=== PATIENT | female | born 1945 | race Caucasian/White ===

== ENCOUNTER 2019-03-05 01:03 | Inpatient (IN) ==
[~2019-03-05 01:03] MED LIST: SODIUM CHLORIDE 0.9% 1,000 ML IV STA
[2019-03-05 01:55] LABS: Alanine Aminotransferase 34 U/L (13-56); Albumin 2.3 G/DL (3.4-5.0); Alkaline Phosphatase 78 U/L (45-117); Aspartate Amino Transferase 24 U/L (0-37); Bilirubin,Total < 0.39 MG/DL (0.2-1.0); Blood Urea Nitrogen 18 MG/DL (7-18); Calcium 7.3 MG/DL (8.5-10.1); Glucose 205 MG/DL (74-106); Total Protein 4.9 G/DL (6.4-8.3)
[2019-03-05 02:06] LABS: PT Patient Result 10.4 SECS
[2019-03-05 02:40] LABS: Basophils # 0.1 10*3/uL (0.0-0.2); Basophils % 0.2 % (0.0-0.8); Eosinophils # 0.2 10*3/uL (0.0-0.87); Hematocrit 18.6 VOL% (35.7-47.0); Immature Granulocytes % 6.5 %; Lymphocytes # 2.9 10*3/uL (1.4-4.0); Lymphocytes % 12.5 % (21.3-54.2); Mean Corpuscular HGB Conc 31.2 GM/DL (32-36); Mean Corpuscular Volume 96.9 FL (87-102); Mean Platelet Volume 9.3 FL (9.6-12.0); Monocytes % 6.8 % (1.7-12.7); Platelet Count 232 T/CUMM (130-400); Red Blood Count 1.92 MC/CUMM (3.8-5.5); Red Cell Distribution Width 13.3 % (9.3-17.3); White Blood Count 22.9 T/CUMM (4-12)
[2019-03-05 02:43] LABS: Hemoglobin 5.8 GM/DL (12.0-16.0)
[2019-03-05 04:03] LABS: Band Neutrophils 2 % (0-10); Eosinophils 2 % (0-10); Lymphocytes 9 % (20-55); Metamyelocytes 2 %; Platelet Estimate Normal; Segmented Neutrophils 79 % (50-85); Total Cells Counted 100
[2019-03-05] MEDS ORDERED: PIPERACILLIN/TAZOBACTAM 3,375 MG in SODIUM CHLORIDE 0.9% 100 ML IV STA (05:51)
[2019-03-05] MEDS ORDERED: MORPHINE 4 MG/1 ML VIAL IV PRN (06:30)
[2019-03-05] MEDS ORDERED: SODIUM CHLORIDE 0.9% 1,000 ML IV SCH (06:30)
[2019-03-05] MEDS ORDERED: NICOTINE 21 MG/24 HR PATCH TRANSDERM PRN (06:30)
[2019-03-05] MEDS: ONDANSETRON 4 MG/2 ML VIAL IV PRN ×2 (08:22→21:32)
[2019-03-05] MEDS: PANTOPRAZOLE 40 MG VIAL IV SCH ×2 (08:25→20:13)
[2019-03-05 08:33] LABS: Basophils % 0.2 % (0.0-0.8); Eosinophils # 0.1 10*3/uL (0.0-0.87); Eosinophils % 0.7 % (0.00-10.9); Hematocrit 20.3 VOL% (35.7-47.0); Immature Granulocytes % 6.6 %; Immature Granulocytes Absolute 1.24 #; Lymphocytes # 3.3 10*3/uL (1.4-4.0); Lymphocytes % 17.5 % (21.3-54.2); Mean Corpuscular HGB Conc 31.5 GM/DL (32-36); Mean Corpuscular Volume 96.2 FL (87-102); Mean Platelet Volume 9.3 FL (9.6-12.0); Monocytes % 7.3 % (1.7-12.7); Neutrophils % 67.7 % (38.7-73.9); Platelet Count 276 T/CUMM (130-400); Red Blood Count 2.11 MC/CUMM (3.8-5.5); Red Cell Distribution Width 13.6 % (9.3-17.3); White Blood Count 18.8 T/CUMM (4-12)
[2019-03-05] MEDS: SODIUM CHLORIDE 0.9% 1,000 ML IV SCH (08:36)
[2019-03-05] MEDS ORDERED: SODIUM CHLORIDE 0.9% 1,000 ML IV PRN (08:49)
[2019-03-05 08:52] LABS: Hemoglobin 6.4 GM/DL (12.0-16.0)
[2019-03-05 08:53] LABS: Apearance,Urine CLEAR (Clear); Bacteria,Urine Occasional /HPF (Few); Bilirubin,Urine Negative (Negative); Blood, Urine Negative (Negative); Glucose,Urine (UA) Negative (Negative); Ketones,Urine Negative (Negative); Mucus,Urine Occasional /LPF (Occasional); Nitrite,Urine Negative (Negative); Protein,Urine Negative; RBC,Urine <1 /HPF (0-4); Squamous Epithelial Cell,Urine Occasional /HPF (0-10); Urine Color Yellow (Yellow); Urine Specific Gravity 1.018 (1.001-1.035); Urine Urobilinogen < 2.0 EU/DL (0.2-1.0); WBC,Urine 1 /HPF (0-6)
[2019-03-05 08:57] LABS: Band Neutrophils 2 % (0-10); Eosinophils 1 % (0-10); Lymphocytes 16 % (20-55); Metamyelocytes 1 %; Microcytosis 1+; Myelocytes 2 %; Segmented Neutrophils 75 % (50-85); Total Cells Counted 100
[2019-03-05 08:58] LABS: Platelet Estimate Normal
[2019-03-05] MEDS: BISACODYL 5 MG TABLET PO SCH ×2 (11:09→16:35)
[2019-03-05] MEDS: PIPERACILLIN/TAZOBACTAM 3,375 MG in SODIUM CHLORIDE 0.9% 100 ML IV SCH ×2 (12:15→20:12)
[2019-03-05] MEDS ORDERED: hydrALAZINE 20 MG/1 ML VIAL IV STA (14:15)
[2019-03-05] MEDS: hydrALAZINE 20 MG/1 ML VIAL IV PRN (15:44)
[2019-03-05] MEDS ORDERED: POLYETHYLENE GLYCOL POWDER 255 GM BOTTLE PO ONE (18:00)
[2019-03-05] MEDS ORDERED: POLYETHYLENE GLYCOL 3350/ELECTROLYTES 4,000 ML BOTTLE NG ONE (18:00)
[2019-03-05] MEDS ORDERED: FUROSEMIDE 40 MG/4 ML VIAL IV ONE (19:27)
[2019-03-05 20:00] LABS: Hematocrit 32.2 VOL% (35.7-47.0)
[2019-03-05 20:02] LABS: Hemoglobin 10.7 GM/DL (12.0-16.0)
[2019-03-05] MEDS ORDERED: MAGNESIUM CITRATE 300 ML BOTTLE PO ONE (21:00)
[2019-03-06] MEDS: SODIUM CHLORIDE 0.9% 1,000 ML IV SCH ×2 (00:21→21:08)
[2019-03-06] MEDS: BISACODYL 5 MG TABLET PO SCH (00:22)
[2019-03-06 03:07] LABS: Basophils # 0.1 10*3/uL (0.0-0.2); Basophils % 0.5 % (0.0-0.8); Eosinophils # 0.2 10*3/uL (0.0-0.87); Eosinophils % 1.1 % (0.00-10.9); Hematocrit 37.1 VOL% (35.7-47.0); Immature Granulocytes % 4.3 %; Immature Granulocytes Absolute 0.74 #; Lymphocytes # 3.1 10*3/uL (1.4-4.0); Lymphocytes % 17.9 % (21.3-54.2); Mean Corpuscular HGB Conc 33.2 GM/DL (32-36); Mean Corpuscular Volume 88.1 FL (87-102); Mean Platelet Volume 8.9 FL (9.6-12.0); Monocytes % 10.6 % (1.7-12.7); NRBC # 0.03 10*3/uL; Neutrophils % 65.6 % (38.7-73.9); Platelet Count 284 T/CUMM (130-400); Red Blood Count 4.21 MC/CUMM (3.8-5.5); Red Cell Distribution Width 15.9 % (9.3-17.3); White Blood Count 17.3 T/CUMM (4-12)
[2019-03-06 03:19] LABS: Albumin 3.5 G/DL (3.4-5.0); Bilirubin,Total 0.5 MG/DL (0.2-1.0); Calcium 8.7 MG/DL (8.5-10.1); Osmolality,Calculated 284.1 MOS/KG (273-304); Total Protein 7.3 G/DL (6.4-8.3)
[2019-03-06 03:40] LABS: Band Neutrophils 1 % (0-10); Eosinophils 3 % (0-10); Lymphocytes 19 % (20-55); Myelocytes 2 %; Segmented Neutrophils 67 % (50-85)
[2019-03-06 03:43] LABS: Hemoglobin 12.3 GM/DL (12.0-16.0)
[2019-03-06 03:44] LABS: Platelet Estimate Normal
[2019-03-06 03:45] LABS: Total Cells Counted 100
[2019-03-06] MEDS: PIPERACILLIN/TAZOBACTAM 3,375 MG in SODIUM CHLORIDE 0.9% 100 ML IV SCH ×3 (04:17→21:08)
[2019-03-06] MEDS: ONDANSETRON 4 MG/2 ML VIAL IV PRN ×2 (04:18→09:35)
[2019-03-06] MEDS: hydrALAZINE 20 MG/1 ML VIAL IV PRN (05:48)
[2019-03-06] MEDS: PROMETHAZINE INJ 25 MG in SODIUM CHLORIDE 0.9% 50 ML IV PRN ×2 (06:38→12:03)
[2019-03-06] MEDS ORDERED: POTASSIUM CHLORIDE RIDER 100 ML IV ONE (07:43)
[2019-03-06] MEDS: POTASSIUM CHLORIDE RIDER 10 MEQ in PREMIX 1 EACH IV SCH ×4 (07:48→10:50)
[2019-03-06] MEDS: PANTOPRAZOLE 40 MG VIAL IV SCH ×2 (09:34→21:31)
[2019-03-06] MEDS ORDERED: NITROGLYCERIN SL 0.4 MG TABLET SL ONE ×2 (11:08→11:09)
[2019-03-06] MEDS ORDERED: NITROGLYCERIN DRIP 50 MG/250 ML BOTTLE IV ONE (11:16)
[2019-03-06] MEDS ORDERED: NITROGLYCERIN DRIP 50 MG/250 ML BOTTLE IV PRN (11:18)
[2019-03-06] MEDS ORDERED: ASPIRIN CHEW 81 MG TABLET PO ONE (11:18)
[2019-03-06] MEDS ORDERED: MORPHINE 4 MG/1 ML VIAL IV PRN (11:39)
[2019-03-06 11:55] LABS: Calcium 8.4 MG/DL (8.5-10.1); Osmolality,Calculated 281.3 MOS/KG (273-304)
[2019-03-06] MEDS ORDERED: fentaNYL 25 MCG/HR PATCH TRANSDERM PRN (12:31)
[2019-03-06] MEDS: CARVEDILOL 6.25 MG TABLET PO SCH ×2 (13:11→21:32)
[2019-03-06 16:18] LABS: CKMB % 7.7 %
[2019-03-06 16:32] LABS: Troponin I 9.51 NG/ML (0.00-0.045)
[2019-03-06 18:15] LABS: CKMB % 7.3 %
[2019-03-06 18:18] LABS: Troponin I 11.6 NG/ML (0.00-0.045)
[2019-03-06] MEDS: ROSUVASTATIN 20 MG TABLET PO SCH (21:32)
[2019-03-07] MEDS: fentaNYL 100 MCG/2 ML VIAL IV PRN ×2 (01:51→04:24)
[2019-03-07 02:02] LABS: Basophils # 0.1 10*3/uL (0.0-0.2); Basophils % 0.3 % (0.0-0.8); Eosinophils # 0.2 10*3/uL (0.0-0.87); Eosinophils % 1.6 % (0.00-10.9); Hematocrit 33.7 VOL% (35.7-47.0); Hemoglobin 10.9 GM/DL (12.0-16.0); Immature Granulocytes % 2.6 %; Immature Granulocytes Absolute 0.38 #; Lymphocytes % 20.5 % (21.3-54.2); Mean Corpuscular HGB Conc 32.3 GM/DL (32-36); Mean Corpuscular Volume 90.3 FL (87-102); Monocytes % 11.6 % (1.7-12.7); Neutrophils % 63.4 % (38.7-73.9); Platelet Count 285 T/CUMM (130-400); Red Blood Count 3.73 MC/CUMM (3.8-5.5); Red Cell Distribution Width 16.2 % (9.3-17.3); White Blood Count 14.6 T/CUMM (4-12)
[2019-03-07 02:13] LABS: Calcium 8.3 MG/DL (8.5-10.1); Osmolality,Calculated 285.1 MOS/KG (273-304)
[2019-03-07] MEDS ORDERED: ASPIRIN CHEW 81 MG TABLET PO ONE (02:14)
[2019-03-07 02:16] LABS: Risk Ratio 4.64; VLDL CHOLESTEROL 33.2 MG/DL
[2019-03-07] MEDS ORDERED: ASPIRIN EC 325 MG TABLET PO STA (02:21)
[2019-03-07 02:37] LABS: CKMB % 6.6 %; Troponin I 9.9 NG/ML (0.00-0.045)
[2019-03-07] MEDS: PIPERACILLIN/TAZOBACTAM 3,375 MG in SODIUM CHLORIDE 0.9% 100 ML IV SCH ×3 (04:25→21:21)
[2019-03-07] MEDS: ASPIRIN EC 325 MG TABLET PO SCH (08:12)
[2019-03-07] MEDS: CARVEDILOL 6.25 MG TABLET PO SCH ×2 (09:05→21:20)
[2019-03-07] MEDS: PANTOPRAZOLE 40 MG VIAL IV SCH ×2 (09:05→21:20)
[2019-03-07] MEDS: SODIUM CHLORIDE 0.9% 1,000 ML IV SCH ×2 (09:06→20:23)
[2019-03-07 10:05] LABS: CKMB % 6.1 %
[2019-03-07 10:10] LABS: Troponin I 7.6 NG/ML (0.00-0.045)
[2019-03-07] MEDS: POTASSIUM CHLORIDE 20 MEQ TABLET PO PRN ×3 (11:17→18:11)
[2019-03-07] MEDS: ROSUVASTATIN 20 MG TABLET PO SCH (21:20)
[2019-03-08] MEDS: fentaNYL 100 MCG/2 ML VIAL IV PRN ×2 (00:19→10:06)
[2019-03-08] MEDS: SODIUM CHLORIDE 0.9% 1,000 ML IV SCH (00:25)
[2019-03-08 03:47] LABS: Basophils % 0.3 % (0.0-0.8); Eosinophils # 0.2 10*3/uL (0.0-0.87); Eosinophils % 2.1 % (0.00-10.9); Immature Granulocytes % 1.4 %; Immature Granulocytes Absolute 0.15 #; Lymphocytes # 2.1 10*3/uL (1.4-4.0); Lymphocytes % 18.9 % (21.3-54.2); Mean Corpuscular HGB Conc 32.3 GM/DL (32-36); Mean Corpuscular Volume 92.5 FL (87-102); Mean Platelet Volume 9.1 FL (9.6-12.0); NRBC # 0.02 10*3/uL; Neutrophils % 68.3 % (38.7-73.9); Platelet Count 254 T/CUMM (130-400); Red Blood Count 3.35 MC/CUMM (3.8-5.5); Red Cell Distribution Width 15.8 % (9.3-17.3); White Blood Count 10.9 T/CUMM (4-12)
[2019-03-08 04:22] LABS: Calcium 8.1 MG/DL (8.5-10.1); Osmolality,Calculated 293.6 MOS/KG (273-304)
[2019-03-08] MEDS: PIPERACILLIN/TAZOBACTAM 3,375 MG in SODIUM CHLORIDE 0.9% 100 ML IV SCH ×2 (04:39→14:31)
[2019-03-08] MEDS: ASPIRIN EC 325 MG TABLET PO SCH (09:29)
[2019-03-08] MEDS: PANTOPRAZOLE 40 MG VIAL IV SCH (09:30)
[2019-03-08] MEDS: CARVEDILOL 6.25 MG TABLET PO SCH (09:30)
[2019-03-08] MEDS: ACETAMINOPHEN 325 MG TABLET PO PRN (15:09)
[2019-03-08] MEDS: ROSUVASTATIN 20 MG TABLET PO SCH (21:32)
[2019-03-08] MEDS: PANTOPRAZOLE 40 MG TABLET PO SCH (21:32)
[2019-03-08] MEDS: CARVEDILOL 12.5 MG TABLET PO SCH (21:33)
[2019-03-09] MEDS: ACETAMINOPHEN 325 MG TABLET PO PRN ×3 (04:47→21:00)
[2019-03-09 06:57] LABS: Basophils % 0.2 % (0.0-0.8); Eosinophils # 0.2 10*3/uL (0.0-0.87); Eosinophils % 1.5 % (0.00-10.9); Hematocrit 29.7 VOL% (35.7-47.0); Hemoglobin 9.7 GM/DL (12.0-16.0); Immature Granulocytes % 0.8 %; Immature Granulocytes Absolute 0.11 #; Lymphocytes # 1.8 10*3/uL (1.4-4.0); Lymphocytes % 13.8 % (21.3-54.2); Mean Corpuscular HGB Conc 32.7 GM/DL (32-36); Mean Corpuscular Volume 91.7 FL (87-102); Mean Platelet Volume 9.1 FL (9.6-12.0); Monocytes % 7.3 % (1.7-12.7); Neutrophils % 76.4 % (38.7-73.9); Platelet Count 276 T/CUMM (130-400); Red Blood Count 3.24 MC/CUMM (3.8-5.5)
[2019-03-09] MEDS: ISOSORBIDE MONONITRATE 30 MG TABLET PO SCH (09:51)
[2019-03-09] MEDS: ASPIRIN EC 325 MG TABLET PO SCH (09:51)
[2019-03-09] MEDS: PANTOPRAZOLE 40 MG TABLET PO SCH ×2 (09:51→21:01)
[2019-03-09] MEDS: CARVEDILOL 12.5 MG TABLET PO SCH ×2 (09:51→21:01)
[2019-03-09] MEDS: amLODIPine 5 MG TABLET PO SCH (11:21)
[2019-03-09] MEDS: ROSUVASTATIN 20 MG TABLET PO SCH (21:01)
[2019-03-10] MEDS: ACETAMINOPHEN 325 MG TABLET PO PRN (04:14)
[2019-03-10 04:42] LABS: Basophils % 0.2 % (0.0-0.8); Eosinophils # 0.3 10*3/uL (0.0-0.87); Eosinophils % 3.2 % (0.00-10.9); Hematocrit 27.8 VOL% (35.7-47.0); Hemoglobin 8.9 GM/DL (12.0-16.0); Immature Granulocytes % 0.5 %; Immature Granulocytes Absolute 0.04 #; Lymphocytes # 2.2 10*3/uL (1.4-4.0); Mean Corpuscular Volume 92.7 FL (87-102); Mean Platelet Volume 8.9 FL (9.6-12.0); Monocytes % 10.3 % (1.7-12.7); Neutrophils % 58.8 % (38.7-73.9); Platelet Count 248 T/CUMM (130-400); White Blood Count 8.2 T/CUMM (4-12)
[2019-03-10 04:59] LABS: Calcium 8.6 MG/DL (8.5-10.1); Osmolality,Calculated 288.8 MOS/KG (273-304)
[2019-03-10] MEDS: POTASSIUM CHLORIDE 20 MEQ TABLET PO PRN ×2 (05:47→08:27)
[2019-03-10] MEDS: ASPIRIN EC 325 MG TABLET PO SCH (08:28)
[2019-03-10] MEDS: ISOSORBIDE MONONITRATE 30 MG TABLET PO SCH (08:28)
[2019-03-10] MEDS: amLODIPine 5 MG TABLET PO SCH (08:28)
[2019-03-10] MEDS: PANTOPRAZOLE 40 MG TABLET PO SCH (08:28)
[2019-03-10] MEDS: CARVEDILOL 12.5 MG TABLET PO SCH (08:28)
[2019-03-10] MEDS ORDERED: POTASSIUM CHLORIDE 20 MEQ TABLET PO SCH (10:00)
[2019-03-10] MEDS ORDERED: LISINOPRIL 5 MG TABLET PO SCH (10:00)
[2019-03-10 12:10] VITALS: BP 115/66
== END 2019-03-10 12:43 | disposition home health service (06) | DRG 377 ==
LOC: EDBD → EDUNIT# → N.ED 01:03 → N.EDINP 06:30 → SUATTDRO 06:30 → N.ICU 06:55 → N.TELES 03-08 20:27
PROVIDERS: ADMIT Internal Medicine